=== PATIENT | female | born 1940 | race Caucasian/White ===

== ENCOUNTER 2017-07-27 11:44 | Emergency (ER) | payer MEDICARE, OTHER ==
[2017-07-27 11:57] VITALS: BMI 26.4
[2017-07-27] MEDS ORDERED: Sodium Chloride 0.9% 1,000 ML IV ONE (12:38)
--- NOTE | 2017-07-27 12:54 | RAD ---
HISTORY: fever, cough COMPARISON: Chest x-ray performed 06/02/15 TECHNIQUE: Chest PA and lateral FINDINGS: Examination limited by habitus and hypoinflation. LUNGS: Mild right lower lobe atelectasis/infiltrates. Please note that chest x-ray has limited sensitivity for the detection of pulmonary masses. PLEURA: No significant pleural effusion identified. No definite pneumothorax . CARDIOVASCULAR: Heart size appears within normal limits. Atherosclerotic calcifications. OSSEOUS STRUCTURES: Degenerative changes. Kyphosis. Osseous demineralization. VISUALIZED UPPER ABDOMEN: Unremarkable. OTHER FINDINGS: None. IMPRESSION: Examination limited by habitus and hypoinflation. Mild medial right lower lobe atelectasis/ infiltrates.
[2017-07-27 13:28] LABS: BASO # 0.1 K/uL (0.0-0.2); BASO % 1.1 % (0.0-2.0); EOS # 0.1 K/uL (0.0-0.7); EOS % 1.6 % (0.0-4.0); HEMOGLOBIN 12.1 g/dL (11.0-16.0); LYMPH # 1.5 K/uL (1.0-4.3); MEAN CELL VOLUME 81.6 fL (81.0-99.0); MEAN CORPUSCULAR HEMOGLOBIN 27.9 pg (27.0-31.0); MEAN CORPUSCULAR HGB CONC 34.1 g/dL (33.0-37.0); MEAN PLATELET VOLUME 9.3 fL (7.2-11.7); MONO # 0.8 K/uL (0.0-0.8); MONO % 13.9 % (0.0-10.0); NEUT # 3.1 K/uL (1.8-7.0); NEUT % 56.4 % (50.0-75.0); NRBC % 0.1 % (0.0-2.0); RBC 4.34 Mil/uL (3.80-5.20); WHITE BLOOD COUNT 5.4 K/uL (4.8-10.8)
[2017-07-27] MEDS ORDERED: Albuterol 0.083% Inhal Sol (2.5 mg/3 mL) UD IH STA (13:36)
--- NOTE | 2017-07-27 13:38 | C.PDOC ---
History Of Present Illness 77-year-old female w/PMHx of NIDDM, HTN presents to the emergency department accompanied by family member with complaints of fever, malaise, nasal congestion , and cough gradually developed over the past two days. Otherwise, pt denies severe headache, dizziness, visual changes, neck pain, drooling, dysphagia, dyspnea, CP, SOB, wheezing, palpitation, diaphoresis, abd. pain, N/V/D, back pain, UTI sx. Ambulate to ED for evaluation, not in any apparent distress. Time Seen by Provider: 07/27/17 12:28 Chief Complaint (Nursing): Weakness/Neurological Deficit History Per: Patient, Family History/Exam Limitations: no limitations Onset/Duration Of Symptoms: Days Current Symptoms Are (Timing): Still Present Past Medical History Reviewed: Historical Data, Nursing Documentation, Vital Signs Vital Signs: Last Vital Signs Temp 99.6 F 07/27/17 14:09 Pulse 70 07/27/17 14:09 Resp 20 07/27/17 14:09 BP 102/53 L 07/27/17 14:09 Pulse Ox 96 07/27/17 16:34 - Medical History PMH: Diabetes, HTN, Hypercholesterolemia, Osteoporosis Denies: Chronic Kidney Disease Family History: States: No Known Family Hx, Diabetes (and cancer mother's side) - Social History Hx Tobacco Use: No Hx Alcohol Use: No Hx Substance Use: No - Immunization History Hx Tetanus Toxoid Vaccination: No Hx Influenza Vaccination: No (unknown) Hx Pneumococcal Vaccination: No (unknown) Review Of Systems Constitutional: Positive for: Fever, Malaise ENT: Negative for: Ear Pain, Throat Pain, Throat Swelling Respiratory: Positive for: Cough. Negative for: Shortness of Breath Gastrointestinal: Negative for: Nausea, Vomiting Genitourinary: Negative for: Dysuria Musculoskeletal: Negative for: Neck Pain, Back Pain Skin: Negative for: Rash Neurological: Negative for: Weakness, Numbness, Headache, Dizziness Physical Exam - Physical Exam Appears: Well, Non-toxic, No Acute Distress Skin: Normal Color, Warm, Dry, No Rash Head: Normacephalic Eye(s): bilateral: PERRL Ear(s): Bilateral: Normal Nose: No Flaring, Discharge (B/L congestion with scant clear rhinorrhea) Oral Mucosa: Moist, No Drooling Throat: No Erythema, No Drooling Neck: Normal ROM, Supple ((-)meningeal sign) Cardiovascular: Rhythm Regular, No Murmur, No JVD, Other ((-) carotid bruits B/L ) Respiratory: Normal Breath Sounds, No Decreased Breath Sounds, No Accessory Muscle Use, No Wheezing Gastrointestinal/Abdominal: Soft, No Tenderness, No Distention, No Guarding Extremity: Normal ROM, No Pedal Edema, No Deformity, No Swelling Neurological/Psych: Oriented x3, Normal Speech, Normal Motor, Normal Sensation, Normal Reflexes ED Course And Treatment - Laboratory Results Result Diagrams: 07/27/17 13:25 07/27/17 13:25 Lab Interpretation: No Acute Changes ECG: Interpreted By Me, Viewed By Me (and ED attending) Interpretation Of ECG: SR@71/min, LAD, T wave inversion in III, AVF, V4-V6, no acute ST-T Canges. O2 Sat by Pulse Oximetry: 96 Pulse Ox Interpretation: Normal - Radiology CXR: Read By Radiologist CXR Interpretation: Yes: Infiltrates (RML?) Progress Note: PT WAS OBS IN ED FOR 4 HOURS. On re-evaluation, pt reports, " feels much better". Pt is afebrile, hemodynamicaly stable. Non-toxic. Tolerate Po well in ED. PulsEOx 100% RA. ENT: no acute findings. Neck: Supple , (-) JVD, (-) carotid bruits B/L Lungs: CTA B/L, BS equal B/L. Abd: benign, ( -) guarding, (-) rebound. neurologicaly intact. CXR (+)? RML infiltrate, EKG- normal study. Blood work review and appears without acute abnoramlities, no leukocytosis. Blood Cx, Ucx- penidng. Pt received empirically, Zithromax/ Rocephin. Case discussed with and diagnostics and imaging review, an discharge with outpt f/u recommend at presnt time. results review and discussed with patient and family. Pt advised on course of ds. Ref. to f/u with PMD in 2 -3 days for re-eavl. return if any worsening or new changes. Disposition Counseled Patient/Family Regarding: Studies Performed, Diagnosis, Need For Followup, Rx Given - Disposition Referrals: [facility] at [facility] [Outside] Disposition: HOME/ ROUTINE Disposition Time: 16:15 Condition: STABLE Additional Instructions: ENCOURAGE FLUIDS TAKE MEDICATION PRESCRIBED FOLLOW UP WITH PMD IN 2-3 DAYS FOR RE-EVALUATION. RETURN TO ED IF ANY WORSENING OR NEW CHANGES. Prescriptions: Albuterol HFA [Ventolin HFA 90 mcg/actuation (8 g)] 1 puff IH Q6 #1 inhaler Benzonatate [Tessalon Perle] 100 mg PO TID #14 capsule Cefdinir [Omnicef] 300 mg PO BID #14 cap Prednisone [Deltasone] 40 mg PO DAILY #6 tablet Instructions: Pneumonia (ED) Forms: [employer] (Maori) Print Language: CZECH - Clinical Impression Clinical Impression: Pneumonia - Scribe Statement The provider has reviewed the documentation as recorded by the Scribe (Kendrick Suarez) All medical record entries made by the Scribe were at my direction and personally dictated by me. I have reviewed the chart and agree that the record accurately reflects my personal performance of the history, physical exam, medical decision making, and the department course for this patient. I have also personally directed, reviewed, and agree with the discharge instructions and disposition.
[2017-07-27] MEDS ORDERED: Azithromycin 500 MG in Sodium Chloride 0.9% 250 ML IVPB STA (13:40)
[2017-07-27 13:44] LABS: VENOUS BLOOD GAS BASE EXCESS -3.3 mmol/L (0.0-2.0); VENOUS BLOOD GAS PCO2 30 mmHg (40-60); VENOUS BLOOD GAS PO2 47 mm/Hg (30-55); VENOUS BLOOD PH 7.43 (7.32-7.43)
[2017-07-27 13:48] LABS: ALB/GLOB RATIO 1.1 (1.0-2.1); ALBUMIN 4.4 g/dL (3.5-5.0); ALT/SGPT 37 U/L (9-52); AST/SGOT 30 U/L (14-36); BLOOD UREA NITROGEN 17 mg/dL (7-17); CALCIUM 9.2 mg/dl (8.6-10.4); GFR AFRICAN-AMERICAN > 60; GFR NON-AFRICAN AMERICAN > 60
[2017-07-27] MEDS ORDERED: Sodium Chloride 0.9% 1,000 ML ONE (14:18)
[2017-07-27 15:27] LABS: SQUAMOUS EPITHIAL 1 /hpf (0-5); URINE BACTERIA RARE (<OCC); URINE BILIRUBIN NEGATIVE (NEGATIVE); URINE BLOOD 3+ (NEGATIVE); URINE CLARITY Hazy (Clear); URINE COLOR Yellow (YELLOW); URINE GLUCOSE (UA) NORMAL (Normal); URINE LEUKOCYTE ESTERASE NEG Leu/uL (Negative); URINE NITRATE NEGATIVE (NEGATIVE); URINE PROTEIN 2+ mg/dL (NEGATIVE); URINE UROBILINOGEN NORMAL mg/dL (0.2-1.0)
[2017-07-27] MEDS ORDERED: MethylPREDNISolone 40 mg Vial ONE (16:22)
[2017-07-27] MEDS ORDERED: Potassium Chloride 20 mEq/15 ml LIQ UD PO STA (16:58)
[2017-07-27] MEDS ORDERED: Potassium Chloride 20 mEq/15 ml LIQ UD ONE (17:10)
[2017-07-27 20:10] VITALS: BP 127/74; PULSE 82; RESP 18; TEMP 99; O2SAT 95
--- NOTE | 2017-07-30 11:38 | CARD ---
APPROVED REPORT EKG Measurement Heart [id number] <Conclusion> Normal sinus rhythm Nonspecific T wave abnormality Abnormal ECG
== END 2017-07-27 20:10 | disposition home or self-care (01) ==
LOC: C.ER 11:44
DX: J18.9 Pneumonia, unspecified organism (principal); I10 Essential (primary) hypertension; E11.9 Type 2 diabetes mellitus without complications; E78.00 Pure hypercholesterolemia, unspecified
CPT/HCPCS: 71046; 80053; 81001; 82803; 85025; 87040; 87086; 87804; 96361; 96365; 96375; 99285; J0456; J2930; J7040; J7050

== ENCOUNTER 2018-04-16 10:51 | Emergency (ER) | payer MEDICARE, OTHER ==
[2018-04-16 10:51] VITALS: BMI 26.4
[2018-04-16 10:57] VITALS: RESP 18
[2018-04-16 11:53] LABS: SQUAMOUS EPITHIAL 2 /hpf (0-5); URINE BILIRUBIN NEGATIVE (NEGATIVE); URINE BLOOD NEGATIVE (NEGATIVE); URINE CLARITY Clear (Clear); URINE COLOR Yellow (YELLOW); URINE GLUCOSE (UA) NORMAL (Normal); URINE LEUKOCYTE ESTERASE TRACE Leu/uL (Negative); URINE PROTEIN NEGATIVE (NEGATIVE); URINE UROBILINOGEN NORMAL mg/dL (0.2-1.0)
--- NOTE | 2018-04-16 12:00 | C.PDOC ---
History Of Present Illness 77 year old female with a history of chronic back pain presents to the ED for evaluation of worsening lower back pain for 1 day. Denies trauma, weakness, numbness, tingling, pain radiating to the lower extremities, urinary symptoms, and any other associated symptoms. Time Seen by Provider: 04/16/18 11:07 Chief Complaint (Nursing): Back Pain History Per: Patient History/Exam Limitations: no limitations Onset/Duration Of Symptoms: Days Current Symptoms Are (Timing): Still Present Past Medical History Reviewed: Historical Data, Nursing Documentation, Vital Signs Vital Signs: Last Vital Signs Temp 98.7 F 04/16/18 10:54 Pulse 72 04/16/18 10:54 Resp 18 04/16/18 10:54 BP 182/79 H 04/16/18 10:54 Pulse Ox 98 04/16/18 10:54 - Medical History PMH: Arthritis, Diabetes, HTN, Hypercholesterolemia, Osteoporosis Denies: Chronic Kidney Disease Family History: States: Diabetes (and cancer mother's side) - Social History Hx Tobacco Use: No Hx Alcohol Use: No Hx Substance Use: No - Immunization History Hx Tetanus Toxoid Vaccination: No Hx Influenza Vaccination: No (unknown) Hx Pneumococcal Vaccination: No (unknown) Review Of Systems Constitutional: Negative for: Other (trauma.) Genitourinary: Negative for: Other (urinary symptoms.) Musculoskeletal: Positive for: Back Pain (lower back.) Neurological: Negative for: Weakness, Numbness, Incoordination Physical Exam - Physical Exam Appears: Well, Non-toxic Skin: Normal Color, Warm, Dry, No Rash, No Other (swelling.) Head: Atraumatic, Normacephalic Eye(s): bilateral: Normal Inspection Neck: Normal ROM, Midline Cervical Tenderness, Paracervical Tenderness, Supple Respiratory: Normal Breath Sounds, No Rales, No Rhonchi, No Wheezing Neurological/Psych: Oriented x3, Normal Speech, Normal Motor, Normal Sensation, Normal Reflexes ED Course And Treatment O2 Sat by Pulse Oximetry: 98 (RA) Pulse Ox Interpretation: Normal - Other Rad X-ray LS X-Ray: Viewed By Me, Read By Radiologist Interpretation: FINDINGS: BONES: No fracture. Rightward thoracolumbar convexity. 7 mm anterior subluxation of L5 relative to S1 possibly secondary to degenerative ligamentous laxity given the prominent inferior lumbar facet hypertrophic arthrosis present. Anterior thoraco lumbar spondylosis. DISC SPACES: The slightly narrowed posteriorly L5-S1 and also posteriorly at L3-4. Additional areas of narrowing at the thoraco levels also suspect. These levels are limited in their evaluation due to the curvature and angulation present. OTHER FINDINGS: Sacroiliac and pubic symphyseal joints unremarkable. Bilateral superolateral acetabular joint space narrowing/mild arthrosis. Bilateral hemipelvic phleboliths. Atherosclerotic vascular calcifications present. IMPRESSION: No fracture. Rightward thoracolumbar convexity. 7 mm anterior subluxation of L5 relative to S1 possibly secondary to degenerative ligamentous laxity given the prominent inferior lumbar facet hypertrophic arthrosis present. Anterior thoraco lumbar spondylosis. Progress Note: Plan:LS Spine. Urinalysis. Progress/Update: X-ray viewed by me and attending. X-ray showed degenerative joint problem. Patient is ambulatory, No acute distress, no neuro-vascular deficit. Patient stable for discharge home. Prescribed Lidoderm and Robaxin. Disposition - Disposition Referrals: Macie Kiran MD [Medical Doctor] - Disposition: HOME/ ROUTINE Disposition Time: 13:13 Condition: STABLE Additional Instructions: Follow up with yourPMD within 1-2 days. Return to ED if feel worse. Prescriptions: Lidocaine 5% [Lidoderm] 1 patch TP DAILY #30 patch Methocarbamol [Robaxin-750] 750 mg PO TID #30 tab Instructions: Low Back Pain in Adults Forms: [facility] (Croatian) - Clinical Impression Clinical Impression: Low back pain - PA / GIS GEOGRAPHER / Resident Statement MD/DO has reviewed & agrees with the documentation as recorded. - Scribe Statement The provider has reviewed the documentation as recorded by the Scribe (Altagracia Obregon) All medical record entries made by the Scribe were at my direction and personally dictated by me. I have reviewed the chart and agree that the record accurately reflects my personal performance of the history, physical exam, medical decision making, and the department course for this patient. I have also personally directed, reviewed, and agree with the discharge instructions and disposition.
[2018-04-16 13:34] VITALS: BP 134/81; PULSE 60; TEMP 98.2
[2018-04-16 15:09] VITALS: O2SAT 98
--- NOTE | 2018-04-16 15:14 | RAD ---
Date of service: 04/16/2018 PROCEDURE: Radiographs of the Lumbar Spine. HISTORY: low back pain COMPARISON: No prior. FINDINGS: BONES: No fracture. Rightward thoracolumbar convexity. 7 mm anterior subluxation of L5 relative to S1 possibly secondary to degenerative ligamentous laxity given the prominent inferior lumbar facet hypertrophic arthrosis present Anterior thoraco lumbar spondylosis. DISC SPACES: The slightly narrowed posteriorly L5-S1 and also posteriorly at L3-4. Additional areas of narrowing at the thoraco levels also suspect. These levels are limited in their evaluation due to the curvature and angulation present. OTHER FINDINGS: Sacroiliac and pubic symphyseal joints unremarkable. Bilateral superolateral acetabular joint space narrowing/mild arthrosis. Bilateral hemipelvic phleboliths. Atherosclerotic vascular calcifications present. IMPRESSION: No fracture. Rightward thoracolumbar convexity. 7 mm anterior subluxation of L5 relative to S1 possibly secondary to degenerative ligamentous laxity given the prominent inferior lumbar facet hypertrophic arthrosis present Anterior thoraco lumbar spondylosis.
== END 2018-04-16 13:41 | disposition home or self-care (01) ==
LOC: C.ER 10:51
DX: M54.5 Low back pain (principal); E11.9 Type 2 diabetes mellitus without complications; E78.00 Pure hypercholesterolemia, unspecified; I10 Essential (primary) hypertension

== ENCOUNTER 2018-10-03 09:53 | Emergency (ER) | payer MEDICARE, OTHER ==
[2018-10-03 09:58] VITALS: BMI 26.8
--- NOTE | 2018-10-03 10:49 | C.PDOC ---
History Of Present Illness 78 y/o female with a PMHx of hypertension, diabetes, and osteoporosis, presents to the ED complaining of left neck pain for the past 4-5 days. Pain radiates down left shoulder, back, and arm. She also reports having some chest pain, which lasted 2 minutes and resolved spontaneously. Associated with SOB on exertion. Patient otherwise denies any fever, cough, dizziness, palpitations, visual changes, nausea, vomiting, or diaphoresis. 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) History/Exam Limitations: no limitations Onset/Duration Of Symptoms: Days Current Symptoms Are (Timing): Still Present Associated Symptoms: Dyspnea Past Medical History Reviewed: Historical Data, Nursing Documentation, Vital Signs Vital Signs: Last Vital Signs Temp 99.3 F 10/03/18 10:05 Pulse 78 10/03/18 10:05 Resp 16 10/03/18 10:05 BP 167/94 H 10/03/18 10:05 Pulse Ox 97 10/03/18 10:05 - Medical History PMH: Arthritis, Diabetes, HTN, Hypercholesterolemia, Osteoporosis Denies: Chronic Kidney Disease Family History: States: Diabetes (and cancer mother's side) - Social History Hx Tobacco Use: No Hx Alcohol Use: No Hx Substance Use: No - Immunization History Hx Tetanus Toxoid Vaccination: No Hx Influenza Vaccination: Yes Hx Pneumococcal Vaccination: No Review Of Systems Except As Marked, All Systems Reviewed And Found Negative. Constitutional: Negative for: Fever, Chills Eyes: Negative for: Vision Change Cardiovascular: Positive for: Chest Pain Respiratory: Positive for: SOB with Excertion. Negative for: Cough Gastrointestinal: Negative for: Nausea, Vomiting, Abdominal Pain Musculoskeletal: Positive for: Neck Pain, Shoulder Pain, Arm Pain, Back Pain Neurological: Negative for: Weakness, Numbness, Headache, Dizziness Physical Exam - Physical Exam Appears: Non-toxic, No Acute Distress Skin: Normal Color, Warm, Dry Head: Atraumatic, Normacephalic Eye(s): bilateral: Normal Inspection, PERRL, EOMI Ear(s): Bilateral: Normal Throat: Normal (airway patent, no swelling), No Erythema, No Exudate Neck: No Midline Cervical Tenderness, Paracervical Tenderness (Left-sided), Sup ple Chest: Symmetrical Cardiovascular: Rhythm Regular, No Murmur Respiratory: Normal Breath Sounds, No Rales, No Rhonchi, No Wheezing Gastrointestinal/Abdominal: Soft, No Distention Back: No CVA Tenderness, No Vertebral Tenderness Extremity: Bilateral: Atraumatic, No Pedal Edema, Normal Color And Temperature Pulses: Left Dorsalis Pedis: Normal, Right Dorsalis Pedis: Normal Neurological/Psych: Oriented x3, Normal Cranial Nerves, Normal Motor, Normal Sensation ED Course And Treatment - Laboratory Results Result Diagrams: 10/03/18 11:07 10/03/18 11:07 O2 Sat by Pulse Oximetry: 97 (RA) Pulse Ox Interpretation: Normal - Other Rad CXR X-Ray: Read By Radiologist Interpretation: Accession No. : [id number]. Patient Name / ID : AMARILIS LAKHANI / [id number]. Exam Date : 10/03/2018 11:02:07 ( Approved ). Study Comment : Sex / Age : F / 78Y. Creator : Mckayla Reeder MD. Dictator : Mckayla Reeder MD. Catalogue Librarian : Remote Sensing Scientist : Mckayla Reeder MD. Approver2 : Report Date : 10/03/2018 11:31:58. My Comment : . HISTORY: chest pain. COMPARISON: Chest x-ray performed 07/27/17. TECHNIQUE: Chest, one view. FINDINGS: LUNGS: No focal consolidation. Please note that chest x-ray has limited sensitivity for the detection of pulmonary masses. PLEURA: No significant pleural effusion violet ntified. No definite pneumothorax . CARDIOVASCULAR: Heart size appears within normal limits. Dense atherosclerotic calcifications present. OSSEOUS STRUCTURES: Degenerative changes of the spine and shoulders. Deformity of the proximal right humerus presumably related to remote injury. VISUALIZED UPPER ABDOMEN: Unremarkable. OTHER FINDINGS: None. IMPRESSION: No focal consolidation. Medical Decision Making Medical Decision Making: Impression: Chest pain, neck pain, musculoskeletal pain, r/o ACS, r/o CHF Plan: - Blood work - EKG - Chest x-ray - 30 mg IV Toradol - 5 mg PO Valium CXR shows no acute disease. 12:30 On re-examination patient reports she is feeling better. Lungs are clear bilaterally. Patient remains comfortable and in no acute distress. Plan is to discharge patient home with Rx for Naproxen. Disposition Counseled Patient/Family Regarding: Diagnosis, Need For Followup, Rx Given - Disposition Referrals: [facility] [Outside] [facility] at [facility] [Outside] [facility] [Outside] Disposition: HOME/ ROUTINE Disposition Time: 12:37 Condition: IMPROVED Additional Instructions: Follow up with your pcp or call for clinic appointment. Take Naprosyn for pain as directed. Prescriptions: Naproxen [Naprosyn Tab] 375 mg PO Q12 #14 tab Instructions: Upper Back Pain, Neck Sprain (DC) Forms: [facility] (Swiss) - POA Present On Arrival: None - Clinical Impression Clinical Impression: Muscle strain, Upper back pain, Neck sprain - Scribe Statement The provider has reviewed the documentation as recorded by the Love Chapa Provider Attestation: All medical record entries made by the Love were at my direction and personally dictated by me. I have reviewed the chart and agree that the record accurately reflects my personal performance of the history, physical exam, medical decision making, and the department course for this patient. I have also personally directed, reviewed, and agree with the discharge instructions and disposition.
[2018-10-03 11:28] LABS: BASO % 0.3 % (0.0-2.0); EOS # 0.1 K/uL (0.0-0.7); EOS % 1.1 % (0.0-4.0); HEMOGLOBIN 12.1 g/dL (11.0-16.0); LYMPH # 1.6 K/uL (1.0-4.3); LYMPH % 25.2 % (20.0-40.0); MEAN CELL VOLUME 82.2 fL (81.0-99.0); MEAN CORPUSCULAR HEMOGLOBIN 27.5 pg (27.0-31.0); MEAN CORPUSCULAR HGB CONC 33.5 g/dL (33.0-37.0); MEAN PLATELET VOLUME 9.4 fL (7.2-11.7); MONO # 0.7 K/uL (0.0-0.8); MONO % 11.9 % (0.0-10.0); NEUT # 3.8 K/uL (1.8-7.0); NEUT % 61.5 % (50.0-75.0); NRBC % 0.1 % (0.0-2.0); RBC 4.41 Mil/uL (3.80-5.20); RED CELL DISTRIBUTION WIDTH 13.2 % (11.5-14.5); WHITE BLOOD COUNT 6.3 K/uL (4.8-10.8)
--- NOTE | 2018-10-03 11:35 | RAD ---
HISTORY: chest pain COMPARISON: Chest x-ray performed 07/27/17 TECHNIQUE: Chest, one view. FINDINGS: LUNGS: No focal consolidation. Please note that chest x-ray has limited sensitivity for the detection of pulmonary masses. PLEURA: No significant pleural effusion identified. No definite pneumothorax . CARDIOVASCULAR: Heart size appears within normal limits. Dense atherosclerotic calcifications present. OSSEOUS STRUCTURES: Degenerative changes of the spine and shoulders. Deformity of the proximal right humerus presumably related to remote injury. VISUALIZED UPPER ABDOMEN: Unremarkable. OTHER FINDINGS: None. IMPRESSION: No focal consolidation.
[2018-10-03 11:42] LABS: ALB/GLOB RATIO 1.4 (1.0-2.1); ALBUMIN 4.5 g/dL (3.5-5.0); ALT/SGPT 16 U/L (9-52); AST/SGOT 26 U/L (14-36); BLOOD UREA NITROGEN 17 mg/dL (7-17); CALCIUM 9.5 mg/dl (8.6-10.4); GFR NON-AFRICAN AMERICAN > 60
[2018-10-03] MEDS ORDERED: Potassium Chloride 20 mEq ER Tab PO ONE ×2 (12:30→12:49)
[2018-10-03 12:56] VITALS: BP 111/57; PULSE 71; RESP 20; TEMP 97.6
[2018-10-04 12:03] VITALS: O2SAT 97
--- NOTE | 2018-10-04 23:43 | CARD ---
APPROVED REPORT Date of service: 10/03/2018 EKG Measurement Heart [id number] <Conclusion> Normal sinus rhythm Moderate voltage criteria for LVH, may be normal variant Inferior infarct, age undetermined Abnormal ECG
== END 2018-10-03 12:54 | disposition home or self-care (01) ==
LOC: C.ER 09:53
DX: S16.1XXA Strain of muscle, fascia and tendon at neck level, initial encounter (principal); S13.9XXA Sprain of joints and ligaments of unspecified parts of neck, initial encounter; X58.XXXA Exposure to other specified factors, initial encounter; M54.89 Other dorsalgia
CPT/HCPCS: 71045; 80053; 82948; 84484; 85025; 93005; 96374; 99285; J1885